=== PATIENT | female | born 1985 | race Caucasian/White ===

== ENCOUNTER 2020-11-06 10:18 | Day surgery (SDC) | payer OTHER ==
[~2020-11-06] VITALS: Ht 167.6 cm; Wt 140.9 kg
[2020-11-06] MEDS ORDERED: PROPOFOL 1% 20 ML VIAL IVP ONE (10:19)
[2020-11-06] MEDS ORDERED: LIDOCAINE/PF 2% 5 ML VIAL IM ONE (10:19)
[2020-11-06] MEDS ORDERED: SODIUM CHLORIDE 0.9% 1,000 ML IV ONE (10:30)
[2020-11-06 11:30] LABS: COVID AG,FIA SOURCE NASOPHARYNGEAL
[2020-11-06] MEDS ORDERED: SODIUM CHLORIDE 0.9% 1,000 ML ONE (11:41)
== END 2020-11-06 15:35 | disposition home or self-care (01) ==
LOC: SURGERY 10:18
PROVIDERS: ATTEND Internal Medicine Gastroenterology
DX: R19.7 Diarrhea, unspecified (principal); K29.50 Unspecified chronic gastritis without bleeding; K44.9 Diaphragmatic hernia without obstruction or gangrene; R10.84 Generalized abdominal pain; Z88.8 Allergy status to other drugs, medicaments and biological substances; Z98.890 Other specified postprocedural states; E66.01 Morbid (severe) obesity due to excess calories; Z90.49 Acquired absence of other specified parts of digestive tract; J45.909 Unspecified asthma, uncomplicated; Z68.43 Body mass index [BMI] 50.0-59.9, adult; Z79.899 Other long term (current) drug therapy
CPT/HCPCS: 43239; 45380; 87426; 88305; 88312; 88313; C1769; C9803; J2704; J3490; J7030